=== PATIENT | male | born 1970 | race African-American/Black ===

== ENCOUNTER 2017-05-27 09:37 | Emergency (ER) | payer SELFPAY ==
[~2017-05-27] VITALS: Ht 172.7 cm; Wt 71.0 kg
[~2017-05-27 09:37] MED LIST: TYLE3 PO; Z.0.NO CURRENT MEDS
[2017-05-27 09:39] VITALS: BP 163/88; PULSE 92; RESP 20; TEMP 99.1; O2SAT 98
--- NOTE | 2017-05-27 12:30 | PD ---
HPI Chief Complaint: Eye Problems/Injury Time Seen by Provider: 12:00 Travel History International Travel<30 days: No Contact w/Intl Traveler<30days: No Traveled to known affect area: No History of Present Illness HPI 47-year-old male presents emergency department for evaluation of right eye pain and visual disturbances 8 days. Patient reports 8 days ago while sawing through piece of wood a fragment of the wood hit him in the right eye. He reports he was wearing safety glasses the time. Since the injury the eye has become increasingly more painful and he's had decreased vision over the last 8 days. He denies headache, nausea, vomiting. He reports his vision is blurry in the affected eye. [facility] Past Medical History Medical History: Denies Significant Hx Social History Tobacco Use: No Allergies-Medications (Allergen,Severity, Reaction): Coded Allergies: No Known Allergies (Verified , 01/18/10) Reported Meds & Prescriptions Reported Meds & Active Scripts Active Tylenol #3 (Acetaminophen/Codeine Phosphate) 300 Mg/30 Mg Tab 1 Tab PO Q6HPRN Reported No Current Meds (Miscellaneous Medication) Misc Review of Systems Except as stated in HPI: all other systems reviewed are Neg Physical Exam Narrative GENERAL: Well-nourished, well-developed patient. SKIN: Focused skin assessment warm/dry. HEAD: Normocephalic. EYES: No scleral icterus. Right eye: Moderately injected. Pupil is 1 mm an oval-shaped. Poorly reactive. No hyphema. Cornea is cloudy. No fluorescein dye uptake. Extraocular motions intact. Visual camilo by confrontation normal. NECK: Supple, trachea midline. No JVD or lymphadenopathy. CARDIOVASCULAR: Regular rate and rhythm without murmurs, gallops, or rubs. RESPIRATORY: Breath sounds equal bilaterally. No accessory muscle use. GASTROINTESTINAL: Abdomen soft, non-tender, nondistended. MUSCULOSKELETAL: No cyanosis, or edema. BACK: Nontender without obvious deformity. No CVA tenderness. Data Data Last Documented VS Vital Signs Date Time Temp Pulse Resp B/P Pulse Ox O2 Delivery O2 Flow Rate FiO2 05/27/17 09:39 99.1 92 20 163/[address] Facial Bones W/O Iv Cont (05/27/17 ) Mandatory Outpatient Referral (05/27/17 13:06) Ciprofloxacin 0.3% Opth Soln (Ciloxan 0. (05/27/17 16:00) [facility] Medical Decision Making Medical Screen Exam Complete: Yes Emergency Medical Condition: Yes Differential Diagnosis Traumatic iritis, acute angle-closure glaucoma, corneal foreign body, corneal abrasion, other Narrative Course 47-year-old male who sustained an injury by a piece of wood to the right eye 8 days ago. Patient has had worsening pain and decreased vision since the injury. Today's examination reveal a visual acuity of 20/200 within the affected eye. Small 1 mm oval shaped poorly reactive pupil, no corneal foreign body identified, IOP 11, EOMs/visual camilo intact. The case was discussed with therapist occupational plate roller Dr. Raquel Ramsey. She requests CT of the orbits to rule out foreign body. If CT is negative for foreign body she would like to see patient in the office tomorrow. CT of the orbits reveal no radiopaque foreign body. Patient has scheduled appointment at 9:30 AM with therapist occupational plate roller Dr. Raquel Ramsey. Patient will be put on ciprofloxacin ophthalmic solution. He agrees to follow up with ophthalmology tomorrow morning. Return precautions discussed. Patient verbalizes understanding and agrees to plan Physician Communication Physician Communication [address] Micah Ramsey therapist occupational plate roller regarding patient. She recommends CT scan of the orbits to rule out foreign body. She will see patient in office tomorrow morning. Diagnosis Primary Impression: Eye injury, non-penetrating Qualified Code: S05.91XA - Eye injury, non-penetrating, right, initial encounter Additional Impression: Traumatic iritis Referrals: DERRICK RAMSEY Additional Instructions: Your scheduled to follow-up with Dr. Ramsey at 9:30 AM tomorrow morning. This appointment is very important. You were given Cipro ophthalmic drops. Place 1 drop into the right eye every 2 hours while awake. If he developed new or worsening symptoms return to the emergency department. Disposition: 01 DISCHARGE HOME Condition: Stable Nati Brandon May 27, 2017 12:30
--- NOTE | 2017-05-27 15:18 | RADRPT ---
EXAM DATE/TIME: 05/27/2017 14:33 [place] COMPARISON: No previous studies available for comparison. INDICATIONS : Right sided eye pain. RADIATION DOSE: 36.64 CTDIvol (mGy) MEDICAL HISTORY : None SURGICAL HISTORY : None. ENCOUNTER: Initial ACUITY: 1 week PAIN SCORE: 5/10 LOCATION: Right upper lateral eye. TECHNIQUE: Volumetric scanning of the facial bones was performed. Using automated exposure control and adjustme nt of the mA and/or kV according to patient size, radiation dose was kept as low as reasonably achiev able to obtain optimal diagnostic quality images. DICOM format image data is available electronicall y for review and comparison. FINDINGS: ORBITS: The orbital and infraorbital osseous structures are intact. The retroconal structures have a normal configuration. No radiopaque foreign bodies are seen. NASAL BONE: The nasal bone and maxillary spine are intact ZYGOMATIC ARCHES: Symmetric without evidence of fracture. SINUSES: The maxillary, ethmoid and frontal sinuses are intact. No air-fluid levels seen. NASAL CAVITY: The nasal septum is intact and midline. The lacrimal ducts are intact. SOFT TISSUES: No radiopaque foreign bodies seen. No soft-tissue swelling is seen. INTRACRANIAL: No intracranial air seen. CRIBIFORM PLATE: Grossly intact. CONCLUSION: Negative for fracture or soft tissue. CT scan is very insensitive for corneal injuri es and small foreign bodies. Direct visualization would be of benefit. Luis Angel Borges MD FACR on May 27, 2017 at 15:15 Board Certified Radiologist. This report was verified electronically.
[2017-05-27] MEDS ORDERED: CIPROFLOXACIN 0.3% OPTH SOLN 2.5 ML BTL RIGHT EYE ONE (16:00)
[2017-05-28] MEDS ORDERED: PRED1SUS6 RIGHT EYE (10:33)
[2017-06-01] MEDS ORDERED: ATRO1SOL11 RIGHT EYE (10:48)
[2017-06-08] MEDS ORDERED: NEOM0.1S4 RIGHT EYE (10:39)
== END 2017-05-27 16:51 | disposition home or self-care (01) ==
LOC: NEPK 09:37
DX: S05.91XA Unspecified injury of right eye and orbit, initial encounter (principal); H20.9 Unspecified iridocyclitis; W22.8XXA Striking against or struck by other objects, initial encounter
CPT/HCPCS: 70486; 99285

== ENCOUNTER 2017-06-01 11:13 | Emergency (ER) | payer SELFPAY ==
[~2017-06-01] VITALS: Ht 172.7 cm; Wt 70.0 kg
[~2017-06-01 11:13] MED LIST changes: +ATRO1SOL11 RIGHT EYE; +PRED1SUS6 RIGHT EYE; -TYLE3 PO; -Z.0.NO CURRENT MEDS
[2017-06-01 11:14] VITALS: BP 122/80; PULSE 67; RESP 15; TEMP 98.2; O2SAT 99
--- NOTE | 2017-06-01 11:19 | PD ---
Physical Exam Time Seen by Provider: 11:19 Narrative 47 y/o male sent here by Jank[facility] Mederos eye, pain, unable to afford rx for atropine and prednisolone opth drops. Vital signs reviewed. Seen at triage desk. Awaiting bed placement. Data Data Last Documented VS Vital Signs Date Time Temp Pulse Resp B/P Pulse Ox O2 Delivery O2 Flow Rate FiO2 06/01/17 11:14 98.2 67 15 122/80 99 MDM Medical Record Reviewed: Yes Supervised Visit with JANE: Michel Mensah Jun 01, 2017 11:19
--- NOTE | 2017-06-01 11:40 | PD ---
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 Patient was seen by Dr. Cherelle Bartholomew, prescribed steroid drops, but was unable to afford the medication. He complains of pain in the OD. History Social History Alcohol Use: No Tobacco Use: No Allergies-Medications (Allergen,Severity, Reaction): Coded Allergies: No Known Allergies (Verified , 06/01/17) Reported Meds & Prescriptions Reported Meds & Active Scripts Active Reported Atropine Opth Drops 1% Soln 1 Drop RIGHT EYE BID Review of Systems Except as stated in HPI: all other systems reviewed are Neg Physical Exam Narrative GENERAL: Well-nourished, well-developed AAA male in no acute distress. SKIN: Focused skin assessment warm/dry. HEAD: Normocephalic. EYES: No scleral icterus. Right eye injected. No drainage. PERRLA. EOMI. NECK: Supple, trachea midline. No JVD or lymphadenopathy. CARDIOVASCULAR: Regular rate and rhythm without murmurs, gallops, or rubs. RESPIRATORY: Breath sounds equal bilaterally. No accessory muscle use. GASTROINTESTINAL: Abdomen soft, non-tender, nondistended. MUSCULOSKELETAL: No cyanosis, or edema. BACK: Nontender without obvious deformity. No CVA tenderness. Data Data Last Documented VS Vital Signs Date Time Temp Pulse Resp B/P Pulse Ox O2 Delivery O2 Flow Rate FiO2 06/01/17 11:14 98.2 67 15 122/80 99 MDM Medical Screen Exam Complete: Yes Emergency Medical Condition: No Differential Diagnosis medication refill versus OD pain versus iritis versus other Narrative Course 47 YO male presents to the ED requesting assistance because he is unable to afford eye medications prescribed by Dr. Bartholomew. He was seen by her in the office today. On exam the right eye is injected, PERRLA, EOMI. I provided the patient with a coupon from [employer]. A medical screening exam was performed: At the time of evaluation the presenting medical condition was determined not to be of an emergent nature. The patient was given the option of receiving additional care, but declined. Patient was given options for additional community resources from which to obtain care. The Patient Has Been advised to seek medical attention for their presenting complaint. The patient has been advised to return to the ER at any time if an emergent condition develops. Primary Impression: Encounter for medical screening examination Condition: Stable Kalie Braun Jun 01, 2017 11:40
[2017-06-08] MEDS ORDERED: NEOM0.1S4 RIGHT EYE (10:39)
== END 2017-06-01 11:51 | disposition left against medical advice (07) ==
LOC: NEPK 11:13
DX: H57.11 Ocular pain, right eye (principal)
CPT/HCPCS: 99281

== ENCOUNTER 2018-01-22 18:49 | Emergency (ER) | payer SELFPAY ==
[~2018-01-22] VITALS: Ht 172.7 cm; Wt 70.0 kg
[~2018-01-22 18:49] MED LIST changes: +NEOM0.1S4 RIGHT EYE; -PRED1SUS6 RIGHT EYE
[2018-01-22 19:25] VITALS: BP 181/91; PULSE 69; RESP 14; TEMP 99; O2SAT 99
[2018-01-22 21:23] VITALS: BP 177/90; PULSE 60; RESP 18; TEMP 98.3; O2SAT 100
[2018-01-22 22:02] LABS: AUTOMATED NEUTROPHIL # 4.1 TH/MM3 (1.8-7.7); BASOPHIL % 0.9 % (0.0-2.0); EOSINOPHIL # 0.2 TH/MM3 (0-0.4); EOSINOPHIL % 2.7 % (0.0-4.0); HEMATOCRIT 39.5 % (39.0-51.0); HEMOGLOBIN 13.6 GM/DL (13.0-17.0); LYMPH % 16.3 % (9.0-44.0); MEAN CELL VOLUME 95.1 FL (80.0-100.0); MEAN CORPUSCULAR HEMOGLOBIN 32.7 PG (27.0-34.0); MEAN CORPUSCULAR HGB CONC 34.4 % (32.0-36.0); MEAN PLATELET VOLUME 8.5 FL (7.0-11.0); MONO % 9.6 % (0.0-8.0); MONOCYTE # 0.6 TH/MM3 (0-0.9); NEUT % 70.5 % (16.0-70.0); PLATELET COUNT 264 TH/MM3 (150-450); RED BLOOD COUNT 4.15 MIL/MM3 (4.50-5.90); RED CELL DISTRIBUTION WIDTH 12.8 % (11.6-17.2); WHITE BLOOD COUNT 5.8 TH/MM3 (4.0-11.0)
[2018-01-22 22:40] LABS: ALBUMIN 4.1 GM/DL (3.4-5.0); ALT (GPT) 21 U/L (12-78); AST (GOT) 16 U/L (15-37); BICARBONATE 29.8 MEQ/L (21.0-32.0); BLOOD UREA NITROGEN 21 MG/DL (7-18); CALCIUM 8.8 MG/DL (8.5-10.1); CHLORIDE 105 MEQ/L (98-107); CREATININE 1.09 MG/DL (0.60-1.30); GLOMERULAR FILTRATION RATE 89 ML/MIN (>89); GLUCOSE,RANDOM 90 MG/DL (74-106); SODIUM (NA) 142 MEQ/L (136-145)
[2018-01-22 22:50] LABS: ALKALINE PHOSPHATASE 97 U/L (45-117); TOTAL BILIRUBIN ADULT 0.2 MG/DL (0.2-1.0)
[2018-01-22 23:33] LABS: ACETAMINOPHEN LESS THAN 2.0 MCG/ML (10.0-30.0)
--- NOTE | 2018-01-22 23:58 | PD ---
HPI Chief Complaint: Psychiatric Symptoms Time Seen by Provider: 21:11 Travel History International Travel<30 days: No Contact w/Intl Traveler<30days: No Traveled to known affect area: No History of Present Illness HPI 47-year-old black male with a history of crack cocaine abuse presents on a voluntary basis for psychological evaluation. He states that is currently homeless. He's been feeling increasingly depressed and having suicidal thoughts. Patient denies any active plan. He would like to get into detox and rehabilitation. He denies any homicidal ideation. He denies any medical complaints other than his right eye which has bothered him in the past. He states that he has used steroid drops but has not followed up with an workers compensation claims examiner. Symptoms are moderate. No alleviating factors. Exacerbated by crack cocaine abuse and homelessness PFSH Past Medical History Narrative Medical Substance abuse, chronic right eye pain questionable iritis Diminished Hearing: No Tetanus Vaccination: Unknown Past Surgical History Surgical History: No Previous Surgery Social History Alcohol Use: No Tobacco Use: No Substance Use: Yes (crack, cocaine) Allergies-Medications (Allergen,Severity, Reaction): Coded Allergies: No Known Allergies (Verified Adverse Reaction, Unknown, 01/22/18) Reported Meds & Prescriptions Reported Meds & Active Scripts Active Prcthyzt-Hgljwwrgy-Zgfbhtkzfvhku Opth Drops 3.5-10,000-0.1 Mg-Units-% Susp 1 Drop RIGHT EYE Q2HR Reported Atropine Opth Drops 1% Soln 1 Drop RIGHT EYE BID Review of Systems General / Constitutional: No: Fever Eyes: Positive: Blurred Vision, Redness, Pain, Visual changes, No: Diploplia HENT: No: Headaches Cardiovascular: No: Chest Pain or Discomfort Respiratory: No: Shortness of Breath Gastrointestinal: No: Abdominal Pain Genitourinary: No: Dysuria Musculoskeletal: No: Pain Skin: No Rash Neurologic: No: Weakness Psychiatric: Positive: Depression, Suicidal Ideations, Mood Disorder, Substance Abuse, No: Anxiety, Disorder of Thought, Homicidal Ideation Endocrine: No: Polydipsia Hematologic/Lymphatic: No: Easy Bruising Physical Exam Narrative GENERAL: Well-nourished, well-developed patient. SKIN: Warm and dry. HEAD: Normocephalic and atraumatic. EYES: No scleral icterus. No injection or drainage in the left eye the right eye is injected.. ENT: No nasal drainage noted. Mucous membranes pink. Airway patent. NECK: Supple, trachea midline. Moves head freely without obvious discomfort. CARDIOVASCULAR: Regular rate and rhythm without murmurs, gallops, or rubs. RESPIRATORY: Breath sounds equal bilaterally. No accessory muscle use. GASTROINTESTINAL: Abdomen soft, non-tender, nondistended. EXTREMITIES: No cyanosis or edema. BACK: Nontender without obvious deformity. No CVA tenderness. NEURO: Patient is alert and oriented. no sensorimotor deficits. Nonfocal. Normal speech. PSYCH: No delusions. No auditory or visual hallucinations. Data Data Last Documented VS Vital Signs Date Time Temp Pulse Resp B/P (MAP) Pulse Ox O2 Delivery O2 Flow Rate FiO2 01/22/18 21:23 98.3 60 18 177/90 (119) 100 Room Air Orders Orders Complete Blood Count With Diff (01/22/18 21:11) Comprehensive Metabolic Panel (01/22/18 21:11) Thyroid Stimulating Hormone (01/22/18 21:11) Psych Screen (01/22/18 21:11) Drug Screen, Random Urine (01/22/18 21:11) Alcohol (Ethanol) (01/22/18 21:11) Salicylates (Aspirin) (01/22/18 21:11) Tylenol (Acetaminophen) (01/22/18 21:11) Labs Laboratory Tests Test 01/22/18 21:25 01/22/18 21:30 Urine Opiates Screen NEG Urine Barbiturates Screen NEG Urine Amphetamines Screen NEG Urine Benzodiazepines Screen NEG Urine Cocaine Screen POS Urine Cannabinoids Screen NEG White Blood Count 5.8 TH/MM3 Red Blood Count 4.15 MIL/MM3 Hemoglobin 13.6 GM/DL Hematocrit 39.5 % Mean Corpuscular Volume 95.1 FL Mean Corpuscular Hemoglobin 32.7 PG Mean Corpuscular Hemoglobin Concent 34.4 % Red Cell Distribution Width 12.8 % Platelet Count 264 TH/MM3 Mean Platelet Volume 8.5 FL Neutrophils (%) (Auto) 70.5 % Lymphocytes (%) (Auto) 16.3 % Monocytes (%) (Auto) 9.6 % Eosinophils (%) (Auto) 2.7 % Basophils (%) (Auto) 0.9 % Neutrophils # (Auto) 4.1 TH/MM3 Lymphocytes # (Auto) 1.0 TH/MM3 Monocytes # (Auto) 0.6 TH/MM3 Eosinophils # (Auto) 0.2 TH/MM3 Basophils # (Auto) 0.0 TH/MM3 CBC Comment DIFF FINAL Differential Comment Blood Urea Nitrogen 21 MG/DL Creatinine 1.09 MG/DL Random Glucose 90 MG/DL Total Protein 8.0 GM/DL Albumin 4.1 GM/DL Calcium Level 8.8 MG/DL Alkaline Phosphatase 97 U/L Aspartate Amino Transf (AST/SGOT) 16 U/L Alanine Aminotransferase (ALT/SGPT) 21 U/L Total Bilirubin 0.2 MG/DL Sodium Level 142 MEQ/L Potassium Level 4.1 MEQ/L Chloride Level 105 MEQ/L Carbon Dioxide Level 29.8 MEQ/L Anion Gap 7 MEQ/L Estimat Glomerular Filtration Rate 89 ML/MIN Thyroid Stimulating Hormone 3rd Gen 4.480 uIU/ML Salicylates Level 3.4 MG/DL Acetaminophen Level LESS THAN 2.0 MCG/ML Ethyl Alcohol Level LESS THAN 3 MG/DL MDM Medical Decision Making Medical Screen Exam Complete: Yes Emergency Medical Condition: Yes Medical Record Reviewed: Yes Interpretation(s) Laboratory Tests Test 01/22/18 21:25 01/22/18 21:30 Urine Opiates Screen NEG Urine Barbiturates Screen NEG Urine Amphetamines Screen NEG Urine Benzodiazepines Screen NEG Urine Cocaine Screen POS Urine Cannabinoids Screen NEG White Blood Count 5.8 TH/MM3 Red Blood Count 4.15 MIL/MM3 Hemoglobin 13.6 GM/DL Hematocrit 39.5 % Mean Corpuscular Volume 95.1 FL Mean Corpuscular Hemoglobin 32.7 PG Mean Corpuscular Hemoglobin Concent 34.4 % Red Cell Distribution Width 12.8 % Platelet Count 264 TH/MM3 Mean Platelet Volume 8.5 FL Neutrophils (%) (Auto) 70.5 % Lymphocytes (%) (Auto) 16.3 % Monocytes (%) (Auto) 9.6 % Eosinophils (%) (Auto) 2.7 % Basophils (%) (Auto) 0.9 % Neutrophils # (Auto) 4.1 TH/MM3 Lymphocytes # (Auto) 1.0 TH/MM3 Monocytes # (Auto) 0.6 TH/MM3 Eosinophils # (Auto) 0.2 TH/MM3 Basophils # (Auto) 0.0 TH/MM3 CBC Comment DIFF FINAL Differential Comment Blood Urea Nitrogen 21 MG/DL Creatinine 1.09 MG/DL Random Glucose 90 MG/DL Total Protein 8.0 GM/DL Albumin 4.1 GM/DL Calcium Level 8.8 MG/DL Alkaline Phosphatase 97 U/L Aspartate Amino Transf (AST/SGOT) 16 U/L Alanine Aminotransferase (ALT/SGPT) 21 U/L Total Bilirubin 0.2 MG/DL Sodium Level 142 MEQ/L Potassium Level 4.1 MEQ/L Chloride Level 105 MEQ/L Carbon Dioxide Level 29.8 MEQ/L Anion Gap 7 MEQ/L Estimat Glomerular Filtration Rate 89 ML/MIN Thyroid Stimulating Hormone 3rd Gen 4.480 uIU/ML Salicylates Level 3.4 MG/DL Acetaminophen Level LESS THAN 2.0 MCG/ML Ethyl Alcohol Level LESS THAN 3 MG/DL Differential Diagnosis MDM: High Differential diagnoses: Schizophrenia, schizoaffective disorder, bipolar, anxiety, depression, adjustment reaction, mood disorder NOS, ODD, depressive disorder NOS, dementia, dementia with agitation, psychosis NOS, substance induced mood disorder, DMDD, Asperger syndrome, infection,electrolyte abnormality, malingering. Narrative Course Mental health screening discussed with the patient. Psychiatric screen ordered. The patient is been medically cleared. This is medical clearance for psychiatric admission, crack cocaine abuse, right eye iritis Diagnosis Primary Impression: Medical clearance for psychiatric admission Additional Impressions: crack cocaine abuse right eye iritis Condition: Stable Adalid Levi Jan 22, 2018 23:57
[2018-01-23 01:48] VITALS: BP 148/95; PULSE 55; RESP 18; TEMP 98.2; O2SAT 100
[2018-01-23 06:13] VITALS: BP 115/66; PULSE 59; RESP 18; TEMP 98.1; O2SAT 99
[2018-01-23 10:16] VITALS: BP 129/80; PULSE 61; RESP 20; O2SAT 99
--- NOTE | 2018-01-23 12:03 | PD ---
Physical Exam Time Seen by Provider: 12:03 Narrative Please refer to previous providers documentation for details regarding the patient's current visit. Data Data Last Documented VS Vital Signs Date Time Temp Pulse Resp B/P (MAP) Pulse Ox O2 Delivery O2 Flow Rate FiO2 01/23/18 12:07 01/23/18 10:16 61 20 99 Room Air 01/23/18 06:13 98.1 Orders Orders Complete Blood Count With Diff (01/22/18 21:11) Comprehensive Metabolic Panel (01/22/18 21:11) Thyroid Stimulating Hormone (01/22/18 21:11) Psych Screen (01/22/18 21:11) Drug Screen, Random Urine (01/22/18 21:11) Alcohol (Ethanol) (01/22/18 21:11) Salicylates (Aspirin) (01/22/18 21:11) Tylenol (Acetaminophen) (01/22/18 21:11) Diet Regular Basic (01/23/18 Breakfast) Ed Discharge Order (01/23/18 12:01) Labs Laboratory Tests Test 01/22/18 21:25 01/22/18 21:30 Urine Opiates Screen NEG Urine Barbiturates Screen NEG Urine Amphetamines Screen NEG Urine Benzodiazepines Screen NEG Urine Cocaine Screen POS Urine Cannabinoids Screen NEG White Blood Count 5.8 TH/MM3 Red Blood Count 4.15 MIL/MM3 Hemoglobin 13.6 GM/DL Hematocrit 39.5 % Mean Corpuscular Volume 95.1 FL Mean Corpuscular Hemoglobin 32.7 PG Mean Corpuscular Hemoglobin Concent 34.4 % Red Cell Distribution Width 12.8 % Platelet Count 264 TH/MM3 Mean Platelet Volume 8.5 FL Neutrophils (%) (Auto) 70.5 % Lymphocytes (%) (Auto) 16.3 % Monocytes (%) (Auto) 9.6 % Eosinophils (%) (Auto) 2.7 % Basophils (%) (Auto) 0.9 % Neutrophils # (Auto) 4.1 TH/MM3 Lymphocytes # (Auto) 1.0 TH/MM3 Monocytes # (Auto) 0.6 TH/MM3 Eosinophils # (Auto) 0.2 TH/MM3 Basophils # (Auto) 0.0 TH/MM3 CBC Comment DIFF FINAL Differential Comment Blood Urea Nitrogen 21 MG/DL Creatinine 1.09 MG/DL Random Glucose 90 MG/DL Total Protein 8.0 GM/DL Albumin 4.1 GM/DL Calcium Level 8.8 MG/DL Alkaline Phosphatase 97 U/L Aspartate Amino Transf (AST/SGOT) 16 U/L Alanine Aminotransferase (ALT/SGPT) 21 U/L Total Bilirubin 0.2 MG/DL Sodium Level 142 MEQ/L Potassium Level 4.1 MEQ/L Chloride Level 105 MEQ/L Carbon Dioxide Level 29.8 MEQ/L Anion Gap 7 MEQ/L Estimat Glomerular Filtration Rate 89 ML/MIN Thyroid Stimulating Hormone 3rd Gen 4.480 uIU/ML Salicylates Level 3.4 MG/DL Acetaminophen Level LESS THAN 2.0 MCG/ML Ethyl Alcohol Level LESS THAN 3 MG/DL MDM Medical Record Reviewed: Yes Supervised Visit with JANE: No Narrative Course Patient was brought in under a Nguyen act. He has been medically cleared, evaluated by psychiatry. Nguyen act has been lifted. Patient has no further medical needs. Patient be discharged at this time. Diagnosis Primary Impression: Medical clearance for psychiatric admission Additional Impression: crack cocaine abuse Referrals: [facility] (Out patient) Disposition: 01 DISCHARGE HOME Condition: Stable Judy Austin Jan 23, 2018 12:03
--- NOTE | 2018-01-23 12:12 | PD ---
History of Present Illness Chief Complaint: Psychiatric Symptoms Time Seen by Provider: 11:50 Travel History International Travel<30 Days: No Contact w/Intl Traveler<30days: No Known affected area: No Legal Status Legal Status: Voluntary History of Present Illness: History of Present Illness HPI 47-year-old black , homeless male with a history of crack cocaine abuse , no previous psychiatric history who presents on a voluntary basis for psychological evaluation. Patient admits to a 5 year history of daily cocaine use, occasional opiate use as well as alcohol use. Yesterday he called his mother and she suggested that he come to the hospital for help. He is asking for detox and rehabilitation services. EMR is reviewed no previous contact with [facility] psychiatry. Current toxicology is positive for cocaine. The patient is alert, oriented, calm and engaging. Dressed in hospital gown and maintaining basic hygiene. Affect is appropriate with fair amount of eye contact. Speech is clear, goal-directed of normal rate and tone. Mood is mildly anxious. There is no evidence of any psychosis with no hallucinations, no delusions, no nuria. There is no suicidal or homicidal ideation, intent or plan. The patient is wanting to receive substance abuse treatment at this time. Remainder of psychiatric review systems is negative. PFSH Past Medical History Diminished Hearing: No Tetanus Vaccination: Unknown Past Surgical History Surgical History: No Previous Surgery Psychiatric History Psychiatric History Hx Psychiatric Treatment: Patient denies any inpatient or outpatient psychiatric treatment. No previous history of suicide attempt History of Inpatient Treatment: No Guns or firearms in home: No Social History Born and raised in [facility]. . Has a 5-year-old daughter and a 23-year -old son. Works as a [employer]. Hx Alcohol Use: No Hx Tobacco Use: No Hx Substance Use: Yes (crack, cocaine) Substance Use Type: Crack, Cocaine, Synth Opiates-Pain Pills Hx of Substance Use Treatment: No Family Psychiatric History Negative Allergies-Medications (Allergen,Severity, Reaction): Coded Allergies: No Known Allergies (Verified Adverse Reaction, Unknown, 01/22/18) Reported Meds & Prescriptions Reported Meds & Active Scripts Active Rvqovdfn-Rergayxub-Faakenbppsqgl Opth Drops 3.5-10,000-0.1 Mg-Units-% Susp 1 Drop RIGHT EYE Q2HR Reported Atropine Opth Drops 1% Soln 1 Drop RIGHT EYE BID Review of Systems Psychiatric: COMPLAINS OF: Anxiety Except as stated in HPI: all other systems reviewed are Neg Mental Status Examination Appearance: Appropriate Consciousness: Alert Orientation: x4 Motor Activity: Normal gait Speech: Unremarkable Language: Adequate Fund of Knowledge: Adequate Attention and Concentration: Adequate Memory: Unremarkable Mood: Appropriate Affect: Appropriate Thought Process & Associations: Intact, Logical, Goal directed Thought Content: Appropriate Hallucination Type: None Delusion Type: None Suicidal Ideation: No Suicidal Plan: No Suicidal Intention: No Homicidal Ideation: No Homicidal Plan: No Homicidal Intention: No Insight: Fair Judgment: Adequate MDM Medical Decision Making Medical Record Reviewed: Yes Assessment/Plan 47-year-old black , homeless male with a history of crack cocaine abuse , no previous psychiatric history who presents on a voluntary basis for psychological evaluation. Patient admits to a 5 year history of daily cocaine use, occasional opiate use as well as alcohol use. Yesterday he called his mother and she suggested that he come to the hospital for help. He is asking for detox and rehabilitation services. The patient presents no evidence of any unstable mental illness. He admits to use of cocaine as well as opiates. At this time at the urgency of his mother he is seeking treatment. He is provided psychoeducation. He is given area resources for substance abuse treatment including [facility], list of NA and AA meetings, list of sober living home. The patient presents no imminent risk to self or others at this time. And is aware that [facility] does not provide substance abuse treatment. Psychiatrically clear for discharge at this time. Orders Orders Complete Blood Count With Diff (01/22/18 21:11) Comprehensive Metabolic Panel (01/22/18 21:11) Thyroid Stimulating Hormone (01/22/18 21:11) Psych Screen (01/22/18 21:11) Drug Screen, Random Urine (01/22/18 21:11) Alcohol (Ethanol) (01/22/18 21:11) Salicylates (Aspirin) (01/22/18 21:11) Tylenol (Acetaminophen) (01/22/18 21:11) Diet Regular Basic (01/23/18 Breakfast) Diet Regular Basic (01/23/18 Lunch) Ed Discharge Order (01/23/18 12:01) Results Vital Signs Date Time Temp Pulse Resp B/P (MAP) Pulse Ox O2 Delivery O2 Flow Rate FiO2 01/23/18 10:16 61 20 129/80 (96) 99 Room Air 01/23/18 06:13 98.1 59 18 115/66 (82) 99 Room Air 01/23/18 01:48 98.2 55 18 148/95 (112) 100 Room Air 01/22/18 21:23 98.3 60 18 177/90 (119) 100 Room Air 01/22/18 19:25 99.0 69 14 181/91 (121) 99 Laboratory Tests Test 01/22/18 21:25 01/22/18 21:30 Urine Opiates Screen NEG Urine Barbiturates Screen NEG Urine Amphetamines Screen NEG Urine Benzodiazepines Screen NEG Urine Cocaine Screen POS Urine Cannabinoids Screen NEG White Blood Count 5.8 Red Blood Count 4.15 Hemoglobin 13.6 Hematocrit 39.5 Mean Corpuscular Volume 95.1 Mean Corpuscular Hemoglobin 32.7 Mean Corpuscular Hemoglobin Concent 34.4 Red Cell Distribution Width 12.8 Platelet Count 264 Mean Platelet Volume 8.5 Neutrophils (%) (Auto) 70.5 Lymphocytes (%) (Auto) 16.3 Monocytes (%) (Auto) 9.6 Eosinophils (%) (Auto) 2.7 Basophils (%) (Auto) 0.9 Neutrophils # (Auto) 4.1 Lymphocytes # (Auto) 1.0 Monocytes # (Auto) 0.6 Eosinophils # (Auto) 0.2 Basophils # (Auto) 0.0 CBC Comment DIFF FINAL Differential Comment Blood Urea Nitrogen 21 Creatinine 1.09 Random Glucose 90 Total Protein 8.0 Albumin 4.1 Calcium Level 8.8 Alkaline Phosphatase 97 Aspartate Amino Transf (AST/SGOT) 16 Alanine Aminotransferase (ALT/SGPT) 21 Total Bilirubin 0.2 Sodium Level 142 Potassium Level 4.1 Chloride Level 105 Carbon Dioxide Level 29.8 Anion Gap 7 Estimat Glomerular Filtration Rate 89 Thyroid Stimulating Hormone 3rd Gen 4.480 Salicylates Level 3.4 Acetaminophen Level LESS THAN 2.0 Ethyl Alcohol Level LESS THAN 3 Diagnosis Primary Impression: crack cocaine abuse Additional Impression: right eye iritis Psychiatrically Cleared: Yes Med/ Other Pt Specific Info: No Meds Exist/No RX given Disposition: 01 DISCHARGE HOME Condition: Stable Problem Qualifiers Suly Juarez Jan 23, 2018 12:12
== END 2018-01-23 12:19 | disposition home or self-care (01) ==
LOC: NEPJ 18:49
DX: F14.10 Cocaine abuse, uncomplicated (principal); H20.9 Unspecified iridocyclitis; F41.9 Anxiety disorder, unspecified; R45.851 Suicidal ideations; Z59.0 Homelessness
CPT/HCPCS: 80053; 80307; 84443; 85025; 99284

== ENCOUNTER 2018-03-02 07:44 | Emergency (ER) | payer SELFPAY ==
[~2018-03-02] VITALS: Ht 172.7 cm; Wt 75.0 kg
[2018-03-02 07:46] VITALS: BP 145/96; PULSE 88; RESP 15; TEMP 98.7; O2SAT 98
[2018-03-02] MEDS ORDERED: SODIUM CHLOR 0.9% 1000 ML INJ 1,000 ML IV SCH (08:04)
--- NOTE | 2018-03-02 08:10 | PD ---
HPI Chief Complaint: GI Complaint Time Seen by Provider: 07:49 Travel History International Travel<30 days: No Contact w/Intl Traveler<30days: No Traveled to known affect area: No History of Present Illness HPI The patient is a 48-year-old -Spanish male who presents to the emergency department for GI bleed. The patient notes a 2-3 month history of GI bleed which she describes as bright red blood that is seen on stool and when wiping. He occasionally does complain of pain in the perirectal area but also complains of lower abdominal pain and cramping intermittently. He denies any history of Crohn's disease or ulcerative colitis. The patient has not followed up with a physician over the last several months in regards to the lower GI bleed. He denies any lightheadedness, dizziness, orthostatic changes, dyspnea with exertion, shortness of breath, or chest pain. Symptoms are moderate. He denies taking any anticoagulants. PFSH Past Medical History Diminished Hearing: No Social History Alcohol Use: No Tobacco Use: No Substance Use: Yes (crack, cocaine) Allergies-Medications (Allergen,Severity, Reaction): Coded Allergies: No Known Allergies (Verified Adverse Reaction, Unknown, 03/02/18) Reported Meds & Prescriptions Reported Meds & Active Scripts Active Qsgizhab-Dgffdntrr-Cksyywpdczmpy Opth Drops 3.5-10,000-0.1 Mg-Units-% Susp 1 Drop RIGHT EYE Q2HR Reported Atropine Opth Drops 1% Soln 1 Drop RIGHT EYE BID Review of Systems Except as stated in HPI: all other systems reviewed are Neg General / Constitutional: No: Fever HENT: No: Lightheadedness Cardiovascular: No: Chest Pain or Discomfort Respiratory: No: Shortness of Breath Gastrointestinal: Positive: Abdominal Pain, Hematochezia, No: Nausea, Vomiting Musculoskeletal: No: Weakness Neurologic: No: Dizziness Physical Exam Narrative GENERAL: Awake, alert, nontoxic-appearing 48-year-old male who appears his stated age and is in no acute respiratory distress. SKIN: Focused skin assessment warm/dry. HEAD: Atraumatic. Normocephalic. ENT: No nasal bleeding or discharge. Mucous membranes pink and moist. NECK: Trachea midline. No JVD. CARDIOVASCULAR: Regular rate and rhythm. No murmur appreciated. RESPIRATORY: No accessory muscle use. Clear to auscultation. Breath sounds equal bilaterally. GASTROINTESTINAL: Abdomen soft, non-tender, nondistended. No rebound tenderness. Rectal: External hemorrhoid noted with small amount of blood. Digital examination reveals no gross blood. Guaiac positive. MUSCULOSKELETAL: No obvious deformities. No clubbing. No cyanosis. No edema. NEUROLOGICAL: Awake and alert. No obvious cranial nerve deficits. Motor grossly within normal limits. Normal speech. PSYCHIATRIC: Appropriate mood and affect; insight and judgment normal. Data Data Last Documented VS Vital Signs Date Time Temp Pulse Resp B/P (MAP) Pulse Ox O2 Delivery O2 Flow Rate FiO2 03/02/18 07:46 98.7 88 15 145/96 (112) 98 Orders Orders Complete Blood Count With Diff (03/02/18 08:04) Comprehensive Metabolic Panel (03/02/18 08:04) Prothrombin Time / Inr (Pt) (03/02/18 08:04) Act Partial Throm Time (Ptt) (03/02/18 08:04) Ecg Monitoring (03/02/18 08:04) Iv Access Insert/Monitor (03/02/18 08:04) Oximetry (03/02/18 08:04) Sodium Chlor 0.9% 1000 Ml Inj (Ns 1000 M (03/02/18 08:04) Sodium Chloride 0.9% Flush (Ns Flush) (03/02/18 08:15) Ct Abd/Pel W Iv Contrast(Rout) (03/02/18 ) Oral Contrast - Adult (03/02/18 08:38) Diatrizoate Liq ( Gastrojose carlos Liq) (03/02/18 09:03) Iohexol 350 Inj (Omnipaque 350 Inj) (03/02/18 09:46) Ed Discharge Order (03/02/18 10:12) Labs Laboratory Tests Test 03/02/18 08:10 White Blood Count 4.8 TH/MM3 Red Blood Count 4.43 MIL/MM3 Hemoglobin 14.2 GM/DL Hematocrit 41.6 % Mean Corpuscular Volume 94.0 FL Mean Corpuscular Hemoglobin 32.0 PG Mean Corpuscular Hemoglobin Concent 34.1 % Red Cell Distribution Width 12.7 % Platelet Count 282 TH/MM3 Mean Platelet Volume 8.5 FL Neutrophils (%) (Auto) 46.9 % Lymphocytes (%) (Auto) 35.5 % Monocytes (%) (Auto) 12.9 % Eosinophils (%) (Auto) 3.7 % Basophils (%) (Auto) 1.0 % Neutrophils # (Auto) 2.2 TH/MM3 Lymphocytes # (Auto) 1.7 TH/MM3 Monocytes # (Auto) 0.6 TH/MM3 Eosinophils # (Auto) 0.2 TH/MM3 Basophils # (Auto) 0.0 TH/MM3 CBC Comment DIFF FINAL Differential Comment Prothrombin Time 9.4 SEC Prothromb Time International Ratio 0.9 RATIO Activated Partial Thromboplast Time 25.9 SEC Blood Urea Nitrogen 21 MG/DL Creatinine 1.39 MG/DL Random Glucose 83 MG/DL Total Protein 8.2 GM/DL Albumin 4.4 GM/DL Calcium Level 9.2 MG/DL Alkaline Phosphatase 96 U/L Aspartate Amino Transf (AST/SGOT) 28 U/L Alanine Aminotransferase (ALT/SGPT) 25 U/L Total Bilirubin 0.2 MG/DL Sodium Level 140 MEQ/L Potassium Level 4.4 MEQ/L Chloride Level 106 MEQ/L Carbon Dioxide Level 25.4 MEQ/L Anion Gap 9 MEQ/L Estimat Glomerular Filtration Rate 67 ML/MIN MDM Medical Decision Making Medical Screen Exam Complete: Yes Emergency Medical Condition: Yes Medical Record Reviewed: Yes Interpretation(s) Last Impressions Abdomen/Pelvis CT 03/02/18 0000 Signed Impressions: Service Date/Time: Friday, March 02, 2018 09:21 - CONCLUSION: Negative CT abdomen/pelvis with contrast. Alex Thomas MD Laboratory Tests Test 03/02/18 08:10 White Blood Count 4.8 TH/MM3 Red Blood Count 4.43 MIL/MM3 Hemoglobin 14.2 GM/DL Hematocrit 41.6 % Mean Corpuscular Volume 94.0 FL Mean Corpuscular Hemoglobin 32.0 PG Mean Corpuscular Hemoglobin Concent 34.1 % Red Cell Distribution Width 12.7 % Platelet Count 282 TH/MM3 Mean Platelet Volume 8.5 FL Neutrophils (%) (Auto) 46.9 % Lymphocytes (%) (Auto) 35.5 % Monocytes (%) (Auto) 12.9 % Eosinophils (%) (Auto) 3.7 % Basophils (%) (Auto) 1.0 % Neutrophils # (Auto) 2.2 TH/MM3 Lymphocytes # (Auto) 1.7 TH/MM3 Monocytes # (Auto) 0.6 TH/MM3 Eosinophils # (Auto) 0.2 TH/MM3 Basophils # (Auto) 0.0 TH/MM3 CBC Comment DIFF FINAL Differential Comment Prothrombin Time 9.4 SEC Prothromb Time International Ratio 0.9 RATIO Activated Partial Thromboplast Time 25.9 SEC Blood Urea Nitrogen 21 MG/DL Creatinine 1.39 MG/DL Random Glucose 83 MG/DL Total Protein 8.2 GM/DL Albumin 4.4 GM/DL Calcium Level 9.2 MG/DL Alkaline Phosphatase 96 U/L Aspartate Amino Transf (AST/SGOT) 28 U/L Alanine Aminotransferase (ALT/SGPT) 25 U/L Total Bilirubin 0.2 MG/DL Sodium Level 140 MEQ/L Potassium Level 4.4 MEQ/L Chloride Level 106 MEQ/L Carbon Dioxide Level 25.4 MEQ/L Anion Gap 9 MEQ/L Estimat Glomerular Filtration Rate 67 ML/MIN Differential Diagnosis Differential diagnosis includes internal hemorrhoid, external hemorrhoid, anal fissure, diverticulosis, rectal cancer, colon cancer, upper GI bleed, AV malformation, coagulopathy, angiodysplasia, Crohn's disease, ulcerative colitis. Narrative Course IV was established, labs are drawn and sent, and the patient was placed on cardiac telemetry monitoring and continuous pulse oximetry monitoring. Rectal exam was performed, no gross blood but guaiac positive. CT of the abdomen and pelvis with IV contrast was ordered. The patient was placed on IV fluids. The patient's hemoglobin is greater than 14. Otherwise, labs are unremarkable except for mildly elevated creatinine. Coags are within normal limits. CT the abdomen and pelvis was negative, therefore, patient is advised to follow-up outpatient with gastroenterology. He is advised to follow-up with gastroenterology on an outpatient basis, may benefit from flexible sigmoidoscopy and/or colonoscopy. The patient is advised to try over-the- counter stool softeners as needed and to drink plenty fluids to stay hydrated. Diagnosis Primary Impression: Hematochezia Patient Instructions: General Instructions Additional Instructions: Please provide the patient a copy of his lab results and CT results at discharge. Follow-up with gastroenterology, he may benefit from outpatient colonoscopy. Yiyp-anp-soqruod stool softeners as needed and drink plenty fluids to stay hydrated. Follow-up with a primary physician. Disposition: 01 DISCHARGE HOME Condition: Stable Cheko Gonsalves MD March 02, 2018 08:10
[2018-03-02] MEDS ORDERED: SODIUM CHLORIDE 0.9% FLUSH 10 ML FLUSH IVF PRN (08:15)
[2018-03-02 08:29] LABS: AUTOMATED NEUTROPHIL # 2.2 TH/MM3 (1.8-7.7); EOSINOPHIL # 0.2 TH/MM3 (0-0.4); EOSINOPHIL % 3.7 % (0.0-4.0); HEMATOCRIT 41.6 % (39.0-51.0); HEMOGLOBIN 14.2 GM/DL (13.0-17.0); LYMPH % 35.5 % (9.0-44.0); LYMPHOCYTE # 1.7 TH/MM3 (1.0-4.8); MEAN CORPUSCULAR HGB CONC 34.1 % (32.0-36.0); MEAN PLATELET VOLUME 8.5 FL (7.0-11.0); MONO % 12.9 % (0.0-8.0); MONOCYTE # 0.6 TH/MM3 (0-0.9); NEUT % 46.9 % (16.0-70.0); PLATELET COUNT 282 TH/MM3 (150-450); RED BLOOD COUNT 4.43 MIL/MM3 (4.50-5.90); RED CELL DISTRIBUTION WIDTH 12.7 % (11.6-17.2); WHITE BLOOD COUNT 4.8 TH/MM3 (4.0-11.0)
[2018-03-02 08:35] LABS: INTERNATIONAL NORMALIZED RATIO 0.9 RATIO; PROTHROMBIN TIME - PATIENT 9.4 SEC (9.8-11.6)
[2018-03-02 08:41] LABS: ALBUMIN 4.4 GM/DL (3.4-5.0); AST (GOT) 28 U/L (15-37); BICARBONATE 25.4 MEQ/L (21.0-32.0); BLOOD UREA NITROGEN 21 MG/DL (7-18); CALCIUM 9.2 MG/DL (8.5-10.1); CHLORIDE 106 MEQ/L (98-107); CREATININE 1.39 MG/DL (0.60-1.30); GLOMERULAR FILTRATION RATE 67 ML/MIN (>89); GLUCOSE,RANDOM 83 MG/DL (74-106); SODIUM (NA) 140 MEQ/L (136-145)
[2018-03-02 08:42] LABS: ALT (GPT) 25 U/L (12-78)
[2018-03-02 08:44] LABS: ALKALINE PHOSPHATASE 96 U/L (45-117); TOTAL BILIRUBIN ADULT 0.2 MG/DL (0.2-1.0); TOTAL PROTEIN 8.2 GM/DL (6.4-8.2)
[2018-03-02] MEDS ORDERED: DIATRIZOATE MEGLUM/DIATRIZOATE SOD 9 ML CUP ONE (09:03)
[2018-03-02] MEDS ORDERED: IOHEXOL 350 MG/ML 10 ML VIAL (for RAD DIAG) IVCONTRAST ONE (09:46)
--- NOTE | 2018-03-02 09:52 | RADRPT ---
EXAM DATE/TIME: 03/02/2018 09:21 [facility] COMPARISON: No previous studies available for comparison. INDICATIONS : Rectal pain for 2-3 months IV CONTRAST: 94 cc Omnipaque 350 (iohexol) IV ORAL CONTRAST: No oral contrast ingested. RADIATION DOSE: 5.83 CTDIvol (mGy) MEDICAL HISTORY : None SURGICAL HISTORY : None. ENCOUNTER: Initial ACUITY: 2 months PAIN SCALE: 4/10 LOCATION: rectal TECHNIQUE: Volumetric scanning of the abdomen and pelvis was performed. Using automated exposure control and ad justment of the mA and/or kV according to patient size, radiation dose was kept as low as reasonably achievable to obtain optimal diagnostic quality images. DICOM format image data is available electro nically for review and comparison. FINDINGS: LOWER LUNGS: The visualized lower lungs are clear. LIVER: Homogeneous density without lesion. There is no dilation of the biliary tree. No calcified gallston es. SPLEEN: Normal size without lesion. PANCREAS: Within normal limits. KIDNEYS: Normal in size and shape. There is no mass, stone or hydronephrosis. ADRENAL GLANDS: Within normal limits. VASCULAR: There is no aortic aneurysm. BOWEL/MESENTERY: The stomach, small bowel, and colon demonstrate no acute abnormality. There is no free intraperitone al air or fluid. ABDOMINAL WALL: Within normal limits. RETROPERITONEUM: There is no lymphadenopathy. BLADDER: No wall thickening or mass. REPRODUCTIVE: Within normal limits. INGUINAL: There is no lymphadenopathy or hernia. MUSCULOSKELETAL: Within normal limits for patient age. CONCLUSION: Negative CT abdomen/pelvis with contrast. Alex Thomas MD on March 02, 2018 at 9:46 Board Certified Radiologist. This report was verified electronically.
== END 2018-03-02 10:38 | disposition home or self-care (01) ==
LOC: NEPC 07:44
DX: K92.1 Melena (principal)
CPT/HCPCS: 74177; 80053; 85025; 85610; 85730; 96360; 96361; 99284; J7030; Q9963; Q9967